=== PATIENT | male | born 1975 | race African-American/Black ===

== ENCOUNTER 2019-04-24 11:36 | Emergency (ER) | payer OTHER ==
[~2019-04-24] VITALS: Ht 165.1 cm; Wt 72.6 kg
[2019-04-24 11:36] VITALS: Ht 165.1 cm; Wt 72.6 kg
[2019-04-24 14:07] LABS: BASOPHIL % 0.6 % (0-2); PLATELET COUNT 224 x10^3mcL (130-400); RED CELL DISTRIBUTION WIDTH 14.3 % (11.5-14.5)
[2019-04-24 14:37] LABS: ALBUMIN 4.2 g/dL (3.4-5.0); ALKALINE PHOSPHATASE 54 U/L (46-116); ALT/SGPT 37 U/L (16-63); AST/SGOT 16 U/L (15-37); BILIRUBIN TOTAL 0.69 mg/dL (0.20-1.00); CALCIUM 9.4 mg/dL (8.5-10.1); CARBON DIOXIDE 22.9 mmol/L (21-32); GFR1 > 60 mL/min; GLUCOSE SERUM 98 mg/dL (74-106); TOTAL PROTEIN, SERUM 7.5 g/dL (6.4-8.2)
[2019-04-24 14:40] LABS: AMPHETAMINE QUAL UR NONE DETECTED (See below)
[2019-04-24 14:46] LABS: CHLORIDE SERUM 107 mmol/L (98-107); POTASSIUM SERUM 4.3 mmol/L (3.5-5.1); SODIUM SERUM 143 mmol/L (136-145)
[2019-04-24 15:10] VITALS: BP 130/80
== END 2019-04-24 15:10 | disposition home or self-care (01) ==
LOC: ED 11:36
PROVIDERS: Emergency Medicine
DX: R07.89 Other chest pain (principal)
CPT/HCPCS: 36415; Q0092